=== PATIENT | male | born 1945 | race Caucasian/White ===

== ENCOUNTER 2018-08-02 01:34 | Inpatient (IN) | payer MEDICARE ==
[~2018-08-02] VITALS: Ht 172.7 cm; Wt 86.3 kg
[2018-08-02] VITALS (14 sets, daily range): BP systolic 105–145; BP diastolic 55–85
[~2018-08-02 01:34] MED LIST: ATOR20TA22 PO; CELE-1 PO; CHOL10005 PO; GAB300 PO; IBUP-136 PO; IRO150 PO; METF-450 PO; MONT10TA4 PO; NICO1PAT TD; NYST15CR37 TP; OMEP-218 PO; PER PO; RIV10 PO; SIMV-42 PO; TEST200V20 IM; VARD20TA30 PO; VARE1TAB18 PO
[2018-08-02] MEDS ORDERED: DEXAMETHASONE SOD 4 MG/ML VIAL ONE (08:08)
[2018-08-02] MEDS ORDERED: ONDANSETRON 4 MG/2 ML VIAL ONE (08:08)
[2018-08-02] MEDS ORDERED: fentaNYL CITR 250 MCG/5 ML AMP ONE (08:08)
[2018-08-02] MEDS ORDERED: LIDOCAINE MPF 1% 5 ML VIAL ONE (08:08)
[2018-08-02] MEDS ORDERED: PROPOFOL EMUL(*) 10MG/ML 20 ML 20 ML ONE ×4 (08:08→13:50)
[2018-08-02] MEDS ORDERED: SUGAMMADEX SOD 200 MG/2 ML SDV ONE (08:08)
[2018-08-02] MEDS ORDERED: KETAMINE HCL-NS 50 MG/5 ML SYR ONE (08:09)
[2018-08-02] MEDS ORDERED: HYDROmorphone HCL 2 MG/ML SDV ONE (08:09)
[2018-08-02] MEDS ORDERED: PROPOFOL EMUL(*) 10MG/ML 20 ML 60 ML ONE (09:11)
[2018-08-02] MEDS ORDERED: NORMOSOL R SOLN(*) 1000 ML BAG 1,000 ML IV PRN (10:30)
[2018-08-02] MEDS ORDERED: LIDOCAINE/SOD BICARB 8.4% SYR ID ONE (10:30)
[2018-08-02] MEDS ORDERED: PREGABALIN 75 MG CAPSULE PO ONE (10:30)
[2018-08-02] MEDS ORDERED: FAMOTIDINE 20 MG TAB PO ONE (10:30)
[2018-08-02] MEDS ORDERED: ACETAMINOPHEN 500 MG TAB PO ONE (10:30)
[2018-08-02] MEDS ORDERED: MIDAZOLAM 2 MG/2 ML VIAL IVP PRN (10:30)
[2018-08-02] MEDS ORDERED: ceFAZolin(*) 2GM/D5W 50ML 50 ML IVPB ONE (10:30)
[2018-08-02] MEDS ORDERED: THROMBIN (BOVINE) 20,000 UNIT VIAL ONE ×2 (11:08→12:54)
[2018-08-02] MEDS ORDERED: NS 0.9% IRRIGATION 1000ML PLCT IR ONE (12:06)
[2018-08-02] MEDS ORDERED: ROCURONIUM BR 10 MG/ML 5 ML SY 5 ML ONE (12:36)
[2018-08-02] MEDS ORDERED: SUGAMMADEX SOD 500 MG/5 ML SDV ONE (12:38)
[2018-08-02] MEDS ORDERED: KETAMINE HCL 200 MG/20 ML MDV ONE (12:40)
[2018-08-02] MEDS ORDERED: TRANEXAMIC AC 1000 MG/10ML SDV 1,000 MG in NS(*) 0.9% 50 ML BAG 50 ML IVPB ONE (13:00)
[2018-08-02] MEDS: BACITRACIN 50000 UNIT/VIAL 50,000 UNIT in NS 0.9% IRRIG(*) 1000ML PLCT 1,000 ML IR PRN ×2 (13:04→14:14)
[2018-08-02] MEDS ORDERED: TRANEXAMIC AC 1000 MG/10ML SDV 1,000 MG in DEXTROSE 5% 50 ML BAG 50 ML IVPB ONE (13:05)
[2018-08-02] MEDS ORDERED: BENZOCAINE/MENTHOL 1 EACH LOZG PO PRN (15:35)
[2018-08-02] MEDS ORDERED: BISACODYL 10 MG SUPP PR PRN (15:35)
[2018-08-02] MEDS ORDERED: FLUSH 10 ML SYR IVP PRN (15:35)
[2018-08-02] MEDS ORDERED: diphenhydrAMINE 25 MG CAP PO PRN (15:35)
[2018-08-02] MEDS ORDERED: LR(*) 1000 ML BAG 1,000 ML IV PRN (15:35)
[2018-08-02] MEDS ORDERED: ACETAMINOPHEN(*)1000 MG/100 ML 100 ML IVPB PRN (15:35)
[2018-08-02] MEDS ORDERED: ACETAMINOPHEN 500 MG TAB PO PRN (15:35)
[2018-08-02] MEDS ORDERED: fentaNYL CITR 100 MCG/2 ML AMP ONE (15:43)
[2018-08-02] MEDS: HYDROmorphone HCL 2 MG/ML SDV IVP PRN ×3 (16:30→22:21)
--- NOTE | 2018-08-02 17:23 | RADIOLOGY IMAGING REPORT ---
FACILITY: [facility] PATIENT NAME: Mark Lemus : 1945 MR: [id number] V: [id number] EXAM DATE: ORDERING PHYSICIAN: MALATHI FITZGERALD TECHNOLOGIST: [place] [facility] [place] Mark Lemus : 1945 Visit/Account:[id number] Date of Sevice: 08/02/2018 Exam: C-ARM FLUORO 1 HR Indication: L2-L4 DISC HERNIATION/FUSION, RAD Comparison: None available Findings: Fluoroscopy is provided for L2-L4 posterior fusion. Visualized dilatation over the spine w ith placement of pedicle screws. Fluoroscopy time 15.2 seconds DOSE: DAP was 1.0054 Gy*cm2. IMPRESSION: Procedural fluoroscopy Report Dictated By: Ap Ruiz at 08/02/2018 5:16 PM Report E-Signed By: Ap Ruiz at 08/02/2018 5:17 PM WSN:[email or web address]
--- NOTE | 2018-08-02 17:24 | RADIOLOGY IMAGING REPORT ---
FACILITY: [facility] PATIENT NAME: Mark Lemus : 1945 MR: [id number] V: [id number] EXAM DATE: ORDERING PHYSICIAN: MALATHI FITZGERALD TECHNOLOGIST: Location: [facility] [place] Patient: Mark Lemus : 1945 Visit/Account:[id number] Date of Sevice: 08/02/2018 Exam: One view, lumbar spine Indication: LUMBAR SPINE FUSION L2-L4, RAD Comparison: None available Findings: Postoperative images after placement L2-L4 fusion and shows good alignment of the pedicle s crews and intact posterior rods. Grade 1 spondylolisthesis are noted at L1-2 and L2-3. IMPRESSION: 1. Normal postoperative appearance after L2-L4 fusion Report Dictated By: Ap Ruiz at 08/02/2018 5:17 PM Report E-Signed By: Ap Ruiz at 08/02/2018 5:18 PM WSN:[email or web address]
[2018-08-02] MEDS: APAP/HYDROCODONE 325/5 TAB PO PRN (17:28)
[2018-08-02] MEDS: ONDANSETRON 4 MG/2 ML VIAL IVP PRN ×2 (17:31→21:19)
[2018-08-02] MEDS: NS(*) 0.9% 250 ML BAG 250 ML IV SCH (18:05)
--- NOTE | 2018-08-02 18:05 | Hospitalist Consultation ---
History of Present Illness Requesting Physician Dr. Anna Reason for Consult Diabetes History of Present Illness This patient was admitted for laminectomy. He has no specific complaints. History Problems: (1) DMII (diabetes mellitus, type 2) Home Meds Reported Medications Ibuprofen (IBUPROFEN) 200 Mg Capsule, 1 CAP PO Q6H PRN for PAIN, CAPSULE 07/26/18 Atorvastatin Calcium (LIPITOR) 20 Mg Tablet, 1 TAB PO QDAY, TAB 07/26/18 Metformin Hcl (METFORMIN HCL) 500 Mg Tablet, 1 TAB PO BID, TAB 07/26/18 Montelukast Sodium (MONTELUKAST SODIUM) 10 Mg Tablet, 1 TAB PO QDAY, TAB 07/26/18 Cholecalciferol (Vitamin D3) (VITAMIN D3) 1,000 Unit Tablet, 1000 UNIT PO QDAY, TAB 07/26/18 Celecoxib (Celebrex) 200 Mg Capsule, 200 MG PO BID 06/21/11 Discontinued Reported Medications Oxycodone/Acetaminophen (OXYCODONE/ACETAMINOPHEN 5MG/325 MG) 5 Mg/325 Mg Tab, 1 TAB PO Q4-6H PRN 06/21/11 Nicotine (NICODERM CQ 14 MG/24 HR (OR EQUIV)) 14 Mg Patch, 14 MG TD DAILY PRN 06/21/11 Rivaroxaban (XARELTO) 10 Mg Tablet, 10 MG PO QHS for 12 Days 06/21/11 Polysaccharide Iron Complex (Niferex) 150 Mg Cap, 150 MG PO BIDBS 06/21/11 Testosterone Cypionate (Depo-Testosterone) 200 Mg/Ml Vial, 200 MG IM [id number] 06/17/11 Vardenafil Hcl (Levitra) 20 Mg Tablet, 20 MG PO DAILY PRN 06/17/11 Varenicline Tartrate (Chantix) 1 Dose-Pack Tab.ds.pk, 1 DOSE PO 06/17/11 Simvastatin (Zocor) 20 Mg Tablet, 20 MG PO QHS 06/17/11 Omeprazole Magnesium (Prilosec Otc) 20 Mg Tablet.dr, 20 MG PO QDAY 06/17/11 Nystatin/Triamcin (Nystatin-Triamcinolone Cream) 15 Gm Cream.gm., 15 GM TP DAILY PRN 06/17/11 Gabapentin (Neurontin) 300 Mg Cap, 300 MG PO HS 06/17/11 Allergies: Coded Allergies: No Known Drug Allergies (Unverified , 06/17/11) Hx Smoking: Yes (1/2 PPD X 15 YEARS ) Smoking Status: Current: Every Day Smoker Caffeine Intake: Coffee, Tea Caffeine/Cups Per Day: 3-4/DAY, 1 TEA IN AFTERNOON Hx Alcohol Use: No Hx Substance Use Disorder: No Review of Systems All Systems Reviewed/Normal: Yes Exam Vital Signs Vital Signs Date Time Temp Pulse Resp B/P (MAP) Pulse Ox O2 Delivery O2 Flow Rate FiO2 08/02/18 17:14 97.6 62 14 123/82 (96) 93 Nasal Cannula 4.0 Neuro: No Gross deficits Eyes: PERRLA Cardiovascular: Regular Rate and Rhythm Respiratory: Clear to Auscultation Extremities: No Edema Assessment and Plan Problems: (1) DMII (diabetes mellitus, type 2) Assessment & Plan: He is on chronic treatment with metformin, which is currently on hold. He has been placed on sliding scale level #2. Venous Thromboembolism Antithrombotics Is Pt On Any Antithrombotics?: No OLIVIA CHOWDHURY DO Aug 02, 2018 18:05
[2018-08-02] MEDS: ceFAZolin(*) 2GM/D5W 50ML 50 ML IVPB SCH (18:32)
[2018-08-02] MEDS: DOCUSATE SODIUM 100 MG CAP PO SCH (20:39)
[2018-08-02] MEDS: INSULIN HUM LISPRO 100 UN/ML 3 ML VIAL SUBQ PRN (22:23)
[2018-08-02] MEDS ORDERED: PROMETHAZINE 25 MG/ML 1 ML AMP IVP PRN (23:20)
[2018-08-03] VITALS (7 sets, daily range): BP systolic 92–159; BP diastolic 46–94; Ht 172.7 cm; Wt 86.3 kg
--- NOTE | 2018-08-03 00:33 | OPERATIVE REPORT 1 ---
EVENT DATE: August 02, 2018 SURGEON: Khanh Anna MD ANESTHESIOLOGIST: Rei Chapman MD ANESTHESIA: General endotracheal anesthesia. 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 POSTOPERATIVE DIAGNOSIS L2-L3 and L3-L4 spinal stenosis with neurogenic claudication and radiculopathy. PROCEDURE PERFORMED 1. L2-L3 and L3-L4 laminectomy. 2. Exploration of fusion mass at L4-L5. 3. Placement of pedicle screws bilaterally at L2, L3 ,and L4, with posterolateral instrumented fusion, L2 to L4. 4. Repair of incidental durotomy with a bovine collagen patch and DuraSeal. INTRAVENOUS FLUIDS 2800 mL. ESTIMATED BLOOD LOSS 500 mL. IMPLANTS 6.5 mm x 45 mm screws from TruSpine x6, 65 mm connecting rods from TruSpine x2, locking caps from TruSpine x6, and finally Osteocel bone graft substitute from [employer] x2. SPECIMENS None. DRAINS None. COMPLICATIONS There was an incidental durotomy at the site of the old laminectomy secondary to significant scarring at that level. DISPOSITION Postanesthesia care unit. INDICATIONS FOR SURGERY Mr. Lemus is a 72-year-old gentleman who presented with bilateral radiating leg pain, numbness and tingling. RFAs in the past have been somewhat helpful, but epidural steroids only gave him mild temporary relief. It is notable that Mr. Lemus underwent a noninstrumented fusion procedure back in 1976, doing well after that. Most recently, he has had a significant decrease in walking tolerance secondary to heaviness and tiredness of his legs, and notes that pushing a shopping cart or being able to lean forward on an object is helpful. Physical examination revealed a decrease in range of motion with negative straight leg raising tests bilaterally. Muscle strength was 5/5 throughout, while light touch sensation was subjectively diminished in the sural distribution on the right and the saphenous distribution on the left. There was symmetrical diminishment of sensation in the tibial nerve distribution bilaterally, with intact peroneal nerve function. Diagnostic studies show a robust fusion mass spanning from L2 down to S1 in the posterolateral gutters. There was severe disc height loss at L1-L2 and L2-L3, and an anterolisthesis at L3-L4. The MRI showed severe left and moderate right lateral recess and foraminal narrowing at L2-L3 and severe central and lateral recess stenosis and severe bilateral foraminal stenosis at L3-L4. Secondary to ongoing symptoms of failure of nonsurgical care, Mr. Lemus was offered and elected to undergo laminectomy from L2 to L4 with posterolateral instrumented fusion at the same levels, and an exploration of the fusion at L4-L5 to ensure that we did not need to extend the fusion construct further caudad. Prior to surgery, I explained in detail to the patient the possible risks of surgery. These risks include bleeding, infection, damage to surrounding structures, nerve root injury, spinal fluid leak, meningitis, persistent and/or worsening pain, need for further surgery, , blindness, sexual dysfunction, autonomic nervous system dysfunction, and other unforeseen medical and surgical complications. An understanding that in general, spinal surgery is more predictive at improving extremity discomfort than axial spine pain was stressed. Further understanding regarding the revision nature of the procedure and a significant increase of risks of things like infection, spinal fluid leak, et cetera, was discussed. DESCRIPTION OF PROCEDURE On the day of surgery, the patient was met in the preoperative hold area and all questions were answered. The operative site was identified and marked by myself. Patient was brought in good condition to the operating room, and after succumbing to anesthesia was positioned in the prone position on a Oscar table. All bony protuberances and soft tissues were well padded in the standard fashion. Care was taken to maintain appropriate perfusion pressures during anesthesia. Preoperative antibiotics were administered according to the appropriate timing schedule. At the conclusion of the procedure, sponge and needle counts were correct x2. A final time-out was undertaken by members of the operating team to correct patient, correct levels, and correct surgery. Patient was then prepped and draped in the standard sterile orthopedic fashion, and a vertical incision was made overlying the intended surgical levels. Sharp dissection was carried out down to the posterior elements, and the soft tissues were elevated off the posterior elements in a subperiosteal manner. A lateral radiograph was obtained to confirm appropriate spinal levels. Starting points for pedicle screws were cleared of soft tissues bilaterally at L2, L3, and L4. At the L4 level, this was more difficult because there was significant change in the anatomic landmarks secondary to the fusion mass that extended to that level. Once we uncovered a portion of that fusion mass, we were able to probe it and explore it with a combination of curettes, Ochoa elevators, et cetera, and ensure that the fusion at L4-L5 was solid. There was, however, no solid mass between L3 and L4, and so we did elect to go ahead with fusion from L2 to L4. Initially, we had discussed doing interbody devices at the L2-L3 and L3-L4 levels; however, given the significant strength of his bone, which was actually so hard that I had to use [id number] taps for placement of pedicle screws, we elected to just perform a posterolateral fusion. At this point, we turned our attention to performing a laminectomy. The spinous processes of L2 and L3 were removed with a Leksell rongeur. The lamina was thinned down the midline with a combination of a Leksell rongeur and a high- speed bur. The spinal canal was entered by undermining the superior insertion of the ligamentum flavum from the inferior aspect of the L2 lamina. A [place] elevator was used to separate dural adhesions from surrounding bone and soft tissue prior to use of Kerrison punch while performing this midline decompression. This was performed first superiorly, going through the superior aspect of the L2 lamina, and then down inferiorly, going down to the level of the previously performed fusion. As we got towards the bottom, there were significant adhesions of dura to surrounding bone, and as we were trying to tease the dura away from the surrounding bone down inferiorly, there was a spinal fluid leak encountered. This was packed off and addressed at a later time. We did continue our decompression, performing bilateral lateral recess decompressions with a combination of #3 and #4 Kerrison punches. Once we had fully decompressed the lateral recesses, we controlled any bleeding with FloSeal and surgical patties. We then turned our attention to placement of pedicle screws. Appropriate starting points for pedicle screws were identified anatomically at the insertion of the pars interarticularis, the midpoint of the transverse process, and the lateral aspect of the facet joints at L2 and L3. At L4, because of the fusion mass, we approximated those landmarks and then utilized fluoroscopy, which we also used at other levels to identify appropriate starting points. Once those starting points were identified, the high-speed bur was used to decorticate the overlying bone, and then a Lenke-style probe was advanced against resistance through the pedicle and into the vertebral bodies. As we were doing this, we noted the bone again to be incredibly hard, and this required us to actually mallet the Lenke probe through the pedicle isthmus and into the vertebral body, and then we had to use a [id number] 6.5 mm tap in all six holes in order to place our pedicle screws. Again, 6.5 mm x 45 mm pedicle screws were placed bilaterally at L2, L3, and L4, and once this was accomplished, we measured for appropriate-length connecting rods. Connecting rods of 65 mm were selected, placed in the tulips, and then locking caps were placed, tightened, and then finally tightened with the breakoff mechanism. The extended tabs were removed from the screws, and we then turned our attention to repair of the spinal fluid leak. Several pieces of DuraGen were placed over the spinal fluid leak, controlling the flow of CSF. Once we had accomplished this, we were able to fill the entire laminectomy defect with DuraSeal, completely stopping the flow of any spinal fluid. Several Valsalva maneuvers were performed, confirming this. We then again exposed the transverse processes as well as the superior aspect of the old fusion mass, and we burred these down with a high-speed bur. A combination of local bone and Osteocel was then packed in the lateral gutters bilaterally overlying the transverse processes of L2 and L3 and extending down to the decorticated superior aspect of the previously performed fusion. The wound was irrigated with copious sterile saline solution prior to the performance of the fusion portion of the procedure, and after placement of the bone graft, we got final x-rays, which showed good positioning of the orthopedic implants. The wound was then closed in layers using a running Stratafix suture for the deep fascia, inverted interrupted sutures for the subcutaneous tissue, and then a running subcuticular skin stitch. Sponge and needle counts were correct x2. POSTOPERATIVE CARE PLAN The patient will remain in the hospital flat on his back for the next 24 hours. Starting tomorrow at about 2 p.m., he will be gradually elevated in terms of the head of his bed, and once he is sitting upright, then we will mobilize him with physical therapy. He will be discharged once he meets criteria, and will follow up with me in two weeks' time for wound check and examination. CAITLIN
[2018-08-03] MEDS: NS(*) 0.9% 250 ML BAG 250 ML IV SCH (02:25)
[2018-08-03] MEDS: ceFAZolin(*) 2GM/D5W 50ML 50 ML IVPB SCH ×2 (02:25→11:46)
[2018-08-03 05:35] LABS: PLATELET COUNT, AUTOMATED 198 K/uL (150-450)
[2018-08-03] MEDS: APAP/HYDROCODONE 325/5 TAB PO PRN ×4 (05:46→19:56)
[2018-08-03] MEDS: ATOMOXETINE HCL 10 MG CAP PO SCH (09:32)
[2018-08-03] MEDS: DOCUSATE SODIUM 100 MG CAP PO SCH ×2 (09:33→21:05)
[2018-08-03] MEDS: MONTELUKAST SODIUM 10 MG TAB PO SCH (09:33)
--- NOTE | 2018-08-03 09:40 | Hospitalist Progress Note ---
Subjective Progress Notes Subjective He was admitted s/p lumbar surgery. He is laying flat per Dr. Anna' order. He had no acute events overnight. Patient Complains of: Cardiovascular: No: Chest Pain Respiratory: No: Shortness of Breath Physical Exam Vital Signs Date Time Temp Pulse Resp B/P (MAP) Pulse Ox O2 Delivery O2 Flow Rate FiO2 08/03/18 08:19 92 Nasal Cannula 2.0 08/03/18 06:58 98.8 75 100/46 (64) 08/03/18 03:54 16 Intake and Output 08/03/18 07:01 Intake Total 2970 ml Output Total 1775 ml Balance 1195 ml Intake Oral 120 ml IV Total 2850 ml Output Urine Total 1675 ml Emesis 100 ml # Emeses 1 General Appearance: Alert, Awake, No Acute Distress, Afebrile Neuro: No Gross deficits Cardiovascular: Regular Rate and Rhythm Respiratory: No Respiratory Distress, Clear to Auscultation Psych: Alert & Oriented X3, Appropriate Mood & Affect Result Diagram: 08/03/18 0514 Assessment and Plan Problems: (1) DMII (diabetes mellitus, type 2) Assessment & Plan: He is on chronic treatment with metformin, which is currently on hold. He has been placed on sliding scale level #2. Exam Sepsis Risk: No Definite Risk MACK NICHOLS ENVIRONMENTAL SERVICES SPECIALIST Aug 03, 2018 09:40
[2018-08-03] MEDS: DIAZEPAM 5 MG TAB PO PRN ×3 (10:34→23:36)
[2018-08-03] MEDS: ONDANSETRON 4 MG/2 ML VIAL IVP PRN (10:55)
[2018-08-03] MEDS: oxyCODONE HCL 5 MG CAP PO PRN (13:13)
--- NOTE | 2018-08-03 15:14 | NUR ---
Physical Therapy Impression PT eval complete. Nursing reports patient is cleared to mobilize with PT with no complaints of postural GILMORE. Pt reporting cramping down L LE, but still able to ambulate with only CGA.Pt denies any numbness, tingling, or headaches. Pt performed supine to sit transfer, with SBA and verbal cues for log roll technique. Pt fit in [place] brace sitting EOB. Pt performed sit<>stand xfer with CGA and use of RW. Pt ambulated 80 ft with CGAx1 and use of RW.Pt ambulated with 1L of O2 since 86% on room air. Pt still reported cramping in L LE, but it did not appear to limit ambulation. Pt left sitting in reclining chair with brace still on and family in room. Pt would benefit from further skilled PT care to ensure safe ambulation and educate on safe stair negotiation. Rec Pending progress. Physical Therapy Goals 1. Jayesh bed mobility, with correct log roll technique 2. Jayesh transfers 3. Jayesh ambulation of 150 ft, with RW 4. Jayesh ability to ascend/descend 2x4 stairs 5. Independent adherence to all lumbar precautions. Patient's Goals
--- NOTE | 2018-08-03 16:13 | NUR ---
This Physical Therapist or Toe Former was present for the entire physical therapy session directing the services, making the skilled judgement, and was not engaged in treating another patient or doing another task at the same time as the treatment session. Addendum: 08/03/18 at 1614 by BOBBY GREEN PT Amended: Links added.
[2018-08-03] MEDS: INSULIN HUM LISPRO 100 UN/ML 3 ML VIAL SUBQ PRN (17:13)
--- NOTE | 2018-08-03 18:00 | EKG ---
[place] [facility] [place] RADHA WATSON : [id number] MR: [id number] V: [id number] EXAM DATE: ORDERING PHYSICIAN: TEDDY NAVARRETE TECHNOLOGIST: Test Reason : tachycardia Blood Pressure : / mmHG Vent. Rate : 114 BPM Atrial Rate : 114 BPM P-R Int : 142 ms QRS Dur : 080 ms QT Int : 316 ms P-R-T Axes : 026 091 033 degrees QTc Int : 435 ms Sinus tachycardia Rightward axis T flattening consistent with inferior ischemia vs normal variant No previous ECGs available Confirmed by TEDDY NAVARRETE ([id number]) on 08/03/2018 6:13:21 PM Referred By: Confirmed By:TEDDY NAVARRETE
--- NOTE | 2018-08-03 22:05 | Miscellaneous Provider Note ---
Miscellaneous Provider Note Note Patient's heart rate increased to the 120's. Afebrile. BP relatively unchanged. O2 requirement unchanged. He was asymptomatic. He denied cp/sob. He reported that he was drinking well. ECG showed a sinus tachycardia. His heart rate has since come down to the 90's. He thinks it could be related to pain. He was having a lot of back pain related to being in bed. TEDDY NAVARRETE MD Aug 03, 2018 22:05
[2018-08-04] MEDS: APAP/HYDROCODONE 325/5 TAB PO PRN ×5 (01:10→21:36)
[2018-08-04 03:30] VITALS: BP 107/62
[2018-08-04 07:48] VITALS: BP 125/78
[2018-08-04] MEDS: MONTELUKAST SODIUM 10 MG TAB PO SCH (08:27)
[2018-08-04] MEDS: DIAZEPAM 5 MG TAB PO PRN ×3 (08:27→21:36)
[2018-08-04] MEDS: DOCUSATE SODIUM 100 MG CAP PO SCH ×2 (08:27→21:35)
[2018-08-04] MEDS: ATOMOXETINE HCL 10 MG CAP PO SCH (08:28)
--- NOTE | 2018-08-04 09:20 | NUR ---
This Physical Therapist or Alteration Tailor was present for the entire physical therapy session directing the services, making the skilled judgement, and was not engaged in treating another patient or doing another task at the same time as the treatment session. Addendum: 08/05/18 at 0920 by HEMALATHA HANNAH PT Amended: Links added.
[2018-08-04] MEDS: oxyCODONE HCL 5 MG CAP PO PRN ×3 (09:42→14:10)
--- NOTE | 2018-08-04 10:14 | Hospitalist Progress Note ---
Subjective Progress Notes Subjective He was admitted s/p lumbar surgery. He has complaints of pain to the surgical site. Patient Complains of: Cardiovascular: No: Chest Pain Respiratory: No: Shortness of Breath Physical Exam Vital Signs Date Time Temp Pulse Resp B/P (MAP) Pulse Ox O2 Delivery O2 Flow Rate FiO2 08/04/18 08:48 85 08/04/18 08:35 Nasal Cannula 1.0 08/04/18 07:48 98.7 116 16 125/78 (94) Intake and Output 08/04/18 01:01 Intake Total 1780 ml Output Total 2250 ml Balance -470 ml Intake Oral 1680 ml IV Total 100 ml Output Urine Total 2150 ml Urine/Stool Mix 100 ml General Appearance: Alert, Awake, No Acute Distress, Afebrile Cardiovascular: Other (tachycardia noted) Respiratory: No Respiratory Distress, Clear to Auscultation GI: Soft and Non-Tender Extremities: Warm, Perfused; No Edema Psych: Alert & Oriented X3, Appropriate Mood & Affect Result Diagram: 08/03/18 0514 Assessment and Plan Problems: (1) Lumbar stenosis Status: Acute Assessment & Plan: s/p lumbar surgery. Followed by Dr. Anna. (2) Tachycardia Status: Acute Assessment & Plan: Likely related to pain, on telemetry. Denies CP/SOB. Will continue to monitor. (3) DMII (diabetes mellitus, type 2) Assessment & Plan: He is on chronic treatment with metformin, which is currently on hold. Will resume when eating better. He has been placed on sliding scale level #2. Exam Sepsis Risk: No Definite Risk MACK NICHOLSP Aug 04, 2018 10:14
[2018-08-04 12:42] VITALS: BP 136/82
[2018-08-04] MEDS: CALCIUM CARBONATE 500 MG CHEW PO PRN (13:16)
[2018-08-04] MEDS: MAGNESIUM HYDROXIDE* 30ML UDCP PO PRN (13:16)
--- NOTE | 2018-08-04 14:04 | NUR ---
Physical Therapy Impression Pt still unable to transfer to standing on own, reporting weakness/pain in L leg. ModAx2 required to perform sit<>stand transfers. Pt ambulated 125 ft with RW, 1L of O2, and CGA. Pt L leg still appearing to go out. Pt reports feeling slightly better with ambulation. HR matt to >135 during ambulation, Pt asymptomatic. Concepcion provided for sit to supine transfer and for positioning in bed. Pt left in bed with O2 on, call light in reach, and grandson present in room. Pt would benefit from further skilled PT care to improve strength/mobility to gain independence with transfer and ambulaiton. Rec short term subacute rehab. Physical Therapy Goals 1. Jayesh bed mobility, with correct log roll technique 2. Jayesh transfers 3. Jayesh ambulation of 150 ft, with RW 4. Jayesh ability to ascend/descend 2x4 stairs 5. Independent adherence to all lumbar precautions. Patient's Goals
[2018-08-04 16:06] VITALS: BP 121/73
[2018-08-04 19:04] VITALS: BP 109/67
[2018-08-04] MEDS: INSULIN HUM LISPRO 100 UN/ML 3 ML VIAL SUBQ PRN (21:44)
[2018-08-04 23:56] VITALS: BP 103/63
[2018-08-05] MEDS: CALCIUM CARBONATE 500 MG CHEW PO PRN ×3 (01:13→20:27)
[2018-08-05] MEDS ORDERED: FUROSEMIDE 20 MG/2 ML VIAL IVP ONE (02:45)
[2018-08-05 02:58] VITALS: BP 125/73
[2018-08-05] MEDS: ALBUTEROL 2.5 MG/3 ML NEB NEB PRN ×2 (03:08→05:17)
--- NOTE | 2018-08-05 04:23 | RADIOLOGY IMAGING REPORT ---
[place] [facility] [place] NAME: Mark Lemus : 1945 MR: [id number] V: [id number] EXAM DATE: ORDERING PHYSICIAN: OLIVIA CHOWDHURY TECHNOLOGIST: Location: [facility] [place] Patient: Mark Lemus : 1945 Visit/Account:[id number] Date of Sevice: 08/05/2018 AP CHEST 08/05/2018 3:54 AM. INDICATION: increased O2 requirements COMPARISON: None. FINDINGS: Lungs are well-expanded. There is patchy opacification in the left mid and lower lung. No pleural eff usion or pneumothorax. Heart size is normal. IMPRESSION: Suspicious for pneumonia in the left mid and lower lung. Aspiration and atelectasis are also considerations. Report Dictated By: Alan Valenzuela MD at 08/05/2018 4:16 AM Report E-Signed By: Alan Valenzuela MD at 08/05/2018 4:18 AM WSN:[id number]
[2018-08-05] MEDS: AMPICILLIN/SULBACT (*) 3 GM VL 3 GM in NS(*) 0.9% 100 ML MINI-BAG 100 ML IVPB SCH ×3 (06:05→17:27)
[2018-08-05 07:24] VITALS: BP 135/75
[2018-08-05 08:07] LABS: PLATELET COUNT, AUTOMATED 199 K/uL (150-450)
[2018-08-05] MEDS: METOPROLOL TART 5 MG/5 ML VIAL IVP SCH ×2 (08:09→17:26)
--- NOTE | 2018-08-05 08:24 | NUR ---
random blood sugar with morning labs at 0755 of 193-- no coverage as pt made NPO Addendum: 08/05/18 at 0825 by SHAWN MAYFIELD RN Amended: Links added.
[2018-08-05] MEDS ORDERED: metFORMIN HCL 500 MG TAB PO SCH (09:00)
--- NOTE | 2018-08-05 09:22 | NUR ---
This Physical Therapist or Coach Builder was present for the entire physical therapy session directing the services, making the skilled judgement, and was not engaged in treating another patient or doing another task at the same time as the treatment session. Addendum: 08/05/18 at 0922 by HEMALATHA HANNAH PT Amended: Links added.
[2018-08-05] MEDS ORDERED: NS(*) 0.9% 1000 ML BAG 1,000 ML IV PRN (10:10)
--- NOTE | 2018-08-05 10:19 | NUR ---
ST Impression Bedside swallow complete. Rec cont NPO with completion of MBSS to objectively analyze anatomy/physiology of deglutition. Scheduled for today (08/05) at 1030am. OK to receive crushed medications, immersed in puree pending further recommendations after MBSS completion.
--- NOTE | 2018-08-05 10:21 | Hospitalist Progress Note ---
Subjective Progress Notes Subjective He had an episode of increased oxygen use. It appears he aspirated ice cream last night. He is requiring Vapotherm at 30L of oxygen this morning. He is coughing up brown secretions, likely food from last night. He reports he doesn't feel good this morning. He also has a fever this morning. Patient Complains of: Cardiovascular: No: Chest Pain Respiratory: Cough, Shortness of Breath Physical Exam Vital Signs Date Time Temp Pulse Resp B/P (MAP) Pulse Ox O2 Delivery O2 Flow Rate FiO2 08/05/18 09:17 104 94 Vapotherm 28.0 90.0 08/05/18 08:16 101.7 08/05/18 07:24 24 135/75 (95) Intake and Output 08/05/18 07:01 Intake Total 0 ml Output Total 350 ml Balance -350 ml Intake Oral 0 ml Output Urine Total 300 ml Emesis 50 ml # Voids 8 # Emeses 1 General Appearance: Alert, Awake Cardiovascular: Other (tachycardia noted) Respiratory: Other (rhonchi heard throughout bilateral upper and lower oma hobbs) GI: Other (abdomen firm to palpation, active bowel sounds) Extremities: Warm, Perfused; No Edema Psych: Appropriate Mood & Affect Result Diagram: 08/05/18 0755 08/05/18 0755 Assessment and Plan Problems: (1) Aspiration pneumonia Status: Acute Assessment & Plan: He had an episode 08/04 of aspiration of ice cream. He is now requiring Vapotherm. He has fevers this morning. He was placed on treatment with Unacyn. Speech evaluation pending. Per patient, he always has difficult time swallowing food prior to surgery. He will be made NPO until swallow evaluation completed. He will be started on IV fluids while NPO. He will be placed on scheduled nebulizers also. (2) Lumbar stenosis Status: Acute Assessment & Plan: s/p lumbar surgery. Followed by Dr. Anna. (3) Tachycardia Status: Acute Assessment & Plan: Likely related to pain, on telemetry. Denies CP/SOB. Will continue to monitor. Will add Metoprolol IV push this morning. (4) DMII (diabetes mellitus, type 2) Assessment & Plan: He is on chronic treatment with metformin, which is currently on hold. Will resume when eating better. He has been placed on sliding scale level #2. Exam Sepsis Risk: Sepsis Risk Problem Qualifiers (1) Aspiration pneumonia: Aspiration pneumonia type: due to regurgitated food Laterality: left Lung location: upper lobe of lung Qualified Codes: J69.0 - Pneumonitis due to inhalation of food and vomit MACK NICHOLS WINE MAKER Aug 05, 2018 10:21
[2018-08-05] MEDS ORDERED: BARIUM SULFATE 148 GM POWDER ONE (10:36)
[2018-08-05] MEDS ORDERED: BARIUM SULFATE 240 ML ORAL SUS (NECTAR) ONE (10:36)
[2018-08-05] MEDS: LEVALBUTEROL 0.63 MG/3 ML NEB NEB SCH ×4 (10:40→22:28)
[2018-08-05 11:14] VITALS: BP 118/72
[2018-08-05] MEDS: DOCUSATE SODIUM 100 MG CAP PO SCH ×2 (11:19→20:27)
[2018-08-05] MEDS: ATOMOXETINE HCL 10 MG CAP PO SCH (11:20)
[2018-08-05] MEDS: MONTELUKAST SODIUM 10 MG TAB PO SCH (11:21)
[2018-08-05] MEDS: oxyCODONE HCL 5 MG CAP PO PRN ×5 (11:21→20:27)
[2018-08-05] MEDS: INSULIN HUM LISPRO 100 UN/ML 3 ML VIAL SUBQ PRN ×3 (11:35→21:42)
--- NOTE | 2018-08-05 11:47 | RADIOLOGY IMAGING REPORT ---
FACILITY: [facility] [place] PATIENT NAME: Mark Lemus : 1945 MR: [id number] V: [id number] EXAM DATE: ORDERING PHYSICIAN: MACK NICHOLS TECHNOLOGIST: Location: [facility] [place] Patient: Mark Lemus : 1945 Visit/Account:[id number] Date of Sevice: 08/05/2018 Exam type: ESOPH VIDEO SWALLOWING History: Dysphagia Comparison: None. Findings: The modified barium swallow was performed by the speech pathologist. Fluoroscopic assistance was pro vided. Patient received thin barium and various food substances and a barium tablet. There was mild oral pharyngeal dysphasia and trace pharyngeal penetration with thin liquids. Mild possible esophag eal dysphasia also noted. Please see the speech pathologist report for complete details. The dose a la nena product was 899.42 micro-Alberts per meter squared. IMPRESSION: 1. As above Report Dictated By: Tasha Perez MD at 08/05/2018 11:39 AM Report E-Signed By: Tasha Perez MD at 08/05/2018 11:40 AM WSN:[id number]
[2018-08-05] MEDS: NICOTINE 21 MG/24 HR PATCH TD SCH (12:20)
--- NOTE | 2018-08-05 13:28 | NUR ---
ST Impression MBSS complete. Pt presents with mild oropharyngeal dysphagia, consistent with generalized body weakness and suspected deconditioning of swallow musculature. Flash, trace penetration was noted with thin liquids. Material was quickly and completely ejected from the airway with laryngeal vestibule closure. All other trials were consumed without aspiration or penetration of material. 1cm barium pill became lodged in the pt's valleculae when paired with thin liquids. Easily cleared pharynx with provision of pureed solid. Anticipate full return to baseline swallow status with constitutional improvement and increased time s/p surgical sedation. Detailed report to follow. Recommend the followin. Diet: as tolerated. Small bites. Softer solids may promote efficiency of oral phase and compensate for shortness of breath during mastication. 2. Liquids: thin liquids. Small sips (cup or straw OK). 3. Medications: immersed in a pureed solid, one at a time. 4. Compensatory Techniques: upright (near 90 deg) with PO intake, remain upright at least 45 min after PO, consume small bites/sips, one bite/sip at a time, take rest breaks for respiration 5. Referrals: f/u with PCP and GI as outpatient re: chronic acid reflux, possible esophageal dysphagia observed on MBSS.
--- NOTE | 2018-08-05 13:33 | SLP BEDSIDE SWALLOW EVALUATION ---
SPEECH THERAPY ASSESSMENT Bedside dysphagia evaluation Physician: SCOTT Holland Clinician: Mindy Phillip MS, CCC-ADULT SERVICES LIBRARIAN Type of Assessment: Bedside Dysphagia Evaluation Patient: Mark Lemus : [birth year] Evaluation Date: 08/05/2018 BACKGROUND The patient is a 72-year-old male admitted to [facility] s/p lumbar surgery on 08/04/18. An ST consult was requested for completion of a bedside swallow evaluation due to concern for aspiration of ice cream with elevated O2 needs and development of fever the evening after surgery. CXR illustrated patchy opacification in the left mid and lower lung, suspicious for aspiration pneumonia. Primary Medical Diagnosis: lumbar stenosis Pmhx: tachycardia, DM2 Pain Scale (0-10): 8, back, RN informed LOC / Participation: Alert and cooperative. Follows instructions: yes, somewhat slow to respond likely r/t to severity of pain Orientation: A&O x4. Functional Communication Deficits impact swallow function/safety, or response to therapy: No DYSPHAGIA Sialorrhea: No Xerostomia: No Hygiene: WFL Supplemental Oxygen Use: Yes. 28.0 liters via Vapotherm. COPD Dx: No. Pain with Swallow: Denies. Pt seen at the bedside for clinical swallowing assessment. Litzy (Karan) present to supplement case history. Grandson reports chronic history of acid reflux (minimally 4x/wk) and frequent hacking throughout the day. Attributes this behavior to habitual smoking. Pt was alert and participatory throughout encounter despite high levels of pain and shortness of breath. Pt required frequent breaks to suction oral cavity, with productive cough generating thick and dark (rodriguez/black) secretions. Oral cavity was swabbed, cleaned, and suctioned prior to placement of dentures and prior to initiation of PO trials. Oromotor exam remarkable for edentulism and mild, generalized reduction in speed and strength of oral musculature. Administered PO trials of thin liquids via cup sip and pureed solids. Pt exhibited delayed, subtle throat clearing in response to thin liquids. Respiration also appeared increasingly audible with a wheezing quality following administration of thin liquids. With consideration of compromised respiratory status, productive coughing (dark, thick secretions), possible indicators of ongoing aspiration, and generalized body weakness, elected to cease PO trials after administration of thin liquids and pureed solids. Recommend pt remain NPO pending MBSS completion with allowance of medications crushed and immersed in puree for pain and medical management. Results and recommendations were discussed at length with the pt, litzy, CORE CARRIER, and RN. Anticipate completion of MBSS today (08/05) at 1030am. ST ASSESSMENT SUMMARY Aspiration Risk: Moderately elevated. Negative prognostic indicators include compromised respiratory status with elevated O2. High suspicion of aspiration pneumonia. RAJIV: Level 1, recommend pt remain NPO pending MBSS completion (Scheduled for 08/05 @ 1030am). Speech Therapy Need Ongoing ST is medically necessary for this patient to obtain objective, thorough assessment of deglutition to assist in developing safe recommendations for diet modifications, compensatory swallow strategies, aspiration precautions, and potential establishment of an oropharyngeal exercise regimen. RECOMMENDATIONS 1. Diet: NPO pending MBSS (apart from medications). 2. Medications: crushed, immersed in puree 3. Compensatory Techniques: continue regular oral hygiene 4. MBSS. Anticipate completion today (08/05) @ 1030am. Thank you for this referral. Mindy Phillip M.S., CCC-ADULT SERVICES LIBRARIAN Speech Therapist [*] CAITLIN
--- NOTE | 2018-08-05 14:20 | NUR ---
Physical Therapy Impression Pt with new diagnosis of aspiration pneumonia, see EMR for details. Pt on 18L O2 via vapotherm, and has been tachycardic today. RN reports that pt is appropriate for minimal PT intervention today and cleared to mobilize to chair if tolerated. Verbal cues for bed mobility and log roll technique, pt does not require physical assist to transfer supine to sitting at EOB. CGA for STS transfer with RW and stand pivot transfer from bed to chair with RW. SpO2 and pulse rate remained stable throughout session and with increase in activity. Pt left in chair with SpO2 monitor in place and all needs within reach. Continue to rec further rehab. Physical Therapy Goals 1. Jayesh bed mobility, with correct log roll technique 2. Jayesh transfers 3. Jayesh ambulation of 150 ft, with RW 4. Jayesh ability to ascend/descend 2x4 stairs 5. Independent adherence to all lumbar precautions. Patient's Goals
[2018-08-05] MEDS: ONDANSETRON 4 MG/2 ML VIAL IVP PRN (15:46)
[2018-08-05] MEDS: MAGNESIUM HYDROXIDE* 30ML UDCP PO PRN (16:16)
--- NOTE | 2018-08-05 16:21 | SLP MODIFIED BARIUM SWALLOW ---
Speech Language Pathology Modified Barium Swallow Evaluation Report Date of Evaluation: 08-05-2018 Patient Name: Mark Lemus Patient : 1945 Ordering Provider: SCOTT Navas Clinician: Mindy Phillip M.S., CCC-RESIDENTIAL DIRECTOR; Jenifer Ahumada, Slicer Machine Operator Clinician BACKGROUND The patient is a 72 yr old male. The patient was referred for an MBS to assess swallow structure and function as indicated by s/s of aspiration during completion of bedside swallow assessment. Bedside swallow assessment was initially requested due to strong suspicion of aspiration pneumonia with elevated oxygen needs and illustration of opacification on chest x-ray. Oxygen Supplementation: yes, 28.0 liters via Vapotherm Level of Consciousness: Non altered Cognitive/Linguistic: WNL Orientation: x4 Language: -expressive: nonaphasic -receptive: nonaphasic Speech: -non-apraxic -non-dysarthric Voice: reduced volume due to compromised respiratory status. Non-verbal Oral Structure and Function: full mandibular and maxillary dentures. Pain with Swallow: Denies with swallow, however, patient reported feeling constant, chronic pain in chest his grandson attributed to acid reflux. Pain did not fluctuate before, during, or after swallow. MODIFIED BARIUM SWALLOW In conjunction with radiology, patient was seated in the lateral view with trials of the following consistencies: thin barium liquid (noncarbonated), barium marked pureed, mechanical soft, regular, and mixed food consistencies, and a 1cm barium pill (whole, paired with thin liquids and chased with pureed solid). ORAL STAGE Mild deficits characterized by generalized oral weakness (labial, lingual, mandibular). This resulted in anterior spillage of thin liquids, slowed mastication of all solid consistencies, effortful A/P transit, and trace to mild post swallow oral residue. Bolus containment was otherwise good with no abnormal premature posterior loss of material. Patient was also able to adequately break down all consistencies into a cohesive bolus for safe deglutition. PHARYNGEAL STAGE Mild deficits further observed, characterized by generalized weakness with reduced BOT retraction and subsequently reduced epiglottic inversion, delayed closure of the laryngeal vestibule, and reduced posterior pharyngeal wall movement. As a result of generalized weakness, patient exhibited mild post swallow pharyngeal residue. Pt further demonstrated trace, flash penetration of thin liquid material into the laryngeal vestibule as a result of reduced epiglottic inversion and delayed LVC closure. Hyolaryngeal excursion was adequate to open PES and clear bolus into esophagus. With administration of 1 cm barium pill, material became lodged in valleculae when paired with thin liquids as a result of decreased epiglottic inversion. Pill was easily cleared with additional swallow of pureed solids. Penetration/Aspiration Scale* score of 1: Material does not enter airway for all consistencies except thin liquids which received a Penetration/Aspiration Scale* score of 2: Material enters the airway, remains above the vocal folds, and is ejected from the airway with laryngeal vestibule closure. *(Luz et al. 1996) ESOPHAGEAL STAGE Suspected mild esophageal dysphagia as evidenced by slow passage of material through cervical and thoracic esophagus. 1 cm barium pill became lodged at LES but was cleared into stomach with 1-2 bites of pureed solid. SUMMARY Aspiration Risk: Mild. Patient presents with mild oropharyngeal dysphagia, consistent with generalized body weakness and suspected deconditioning of swallow musculature. Flash, trace penetration was noted with thin liquids. Material was quickly and completely ejected from the airway with laryngeal vestibule closure. All other trials were consumed without aspiration or penetration of material. 1cm barium pill became lodged in the patients valleculae when paired with thin liquids. The patient easily cleared pharynx with provision of pureed solid. Anticipate full return to baseline swallow status with constitutional improvement and increased time s/p surgical sedation. Dysphagia Severity Rating Scale (Gramigna, 2006; Manjinder et. al., 1990): 2: Mild oropharyngeal dysphagia present, which can be managed by specific swallow suggestions. RECOMMENDATIONS 1. Diet: as tolerated. Small bites. Softer solids may promote efficiency of oral phase and compensate for shortness of breath during mastication. Liquids: thin liquids. Small sips (cup or straw OK). Medications: immersed in a pureed solid, one at a time. 2. Compensatory Techniques: upright (near 90 deg) with PO intake, remain upright at least 45 min after PO, consume small bites/sips, one bite/sip at a time, take rest breaks for respiration 3. Referrals: f/u with PCP and GI as outpatient re: chronic acid reflux, possible esophageal dysphagia observed on MBSS. 4. No ST recommended at this time. Mild oropharyngeal dysphagia anticipated to resolve with constitutional improvement. Thank you for this referral. Please call [phone] to contact the RESIDENTIAL DIRECTOR. Mindy Phillip M.S., [facility]-RESIDENTIAL DIRECTOR Jenifer Ahumada, Slicer Machine Operator Clinician [facility]
[2018-08-05] MEDS: metFORMIN HCL 500 MG TAB PO SCH (17:26)
[2018-08-05 18:53] VITALS: BP 119/66
[2018-08-05 23:51] VITALS: BP 131/78
[2018-08-06] MEDS: LEVALBUTEROL 0.63 MG/3 ML NEB NEB SCH ×2 (00:28→05:39)
[2018-08-06] MEDS: AMPICILLIN/SULBACT (*) 3 GM VL 3 GM in NS(*) 0.9% 100 ML MINI-BAG 100 ML IVPB SCH ×2 (00:31→05:29)
[2018-08-06] MEDS: METOPROLOL TART 5 MG/5 ML VIAL IVP SCH ×3 (00:31→12:29)
[2018-08-06 03:16] VITALS: BP 114/72
[2018-08-06 06:32] LABS: PLATELET COUNT, AUTOMATED 203 K/uL (150-450)
[2018-08-06] MEDS: CALCIUM CARBONATE 500 MG CHEW PO PRN (06:53)
[2018-08-06 06:57] VITALS: BP 138/80
[2018-08-06] MEDS ORDERED: GI COCKTAIL 60 ML BTL PO PRN (08:25)
[2018-08-06] MEDS: MONTELUKAST SODIUM 10 MG TAB PO SCH (08:46)
[2018-08-06] MEDS: metFORMIN HCL 500 MG TAB PO SCH (08:46)
[2018-08-06] MEDS: DOCUSATE SODIUM 100 MG CAP PO SCH (08:46)
[2018-08-06] MEDS: ATOMOXETINE HCL 10 MG CAP PO SCH (08:46)
[2018-08-06] MEDS: NICOTINE 21 MG/24 HR PATCH TD SCH (08:46)
[2018-08-06] MEDS: APAP/HYDROCODONE 325/5 TAB PO PRN (08:47)
[2018-08-06] MEDS ORDERED: RANITIDINE HCL 150 MG TAB PO SCH (09:00)
[2018-08-06] MEDS ORDERED: PATCH REMOVAL 1 EA TP SCH (09:00)
[2018-08-06] MEDS ORDERED: AMOX/CLAV 875 MG TAB PO ONE (09:00)
--- NOTE | 2018-08-06 10:35 | Antimicrobial Stewardship ---
Antimicrobial Time Out Antimicrobial Stewardship MD Service: Other (SURGERY) Indications: Other (PO STOP) Antimicrobial Used POST OP ABX - CONVERTED TO PO AUGMENTIN BEFORE DISCHARGE Start Date: Aug 05, 2018 Culture Results: No Eligible for PO Conversion Eligable for PO Conversion: Yes Reviewed with Provider Reviewed w/ Provider on Rounds: No Comments Comments POST OP FABI BARFIELD Aug 06, 2018 10:35
[2018-08-06] MEDS ORDERED: MOM PO (10:57)
[2018-08-06] MEDS ORDERED: LACT1CAP9 PO (10:57)
[2018-08-06] MEDS ORDERED: RANI-318 PO (10:57)
[2018-08-06] MEDS ORDERED: AMOX-559 PO (10:57)
[2018-08-06] MEDS ORDERED: DOCU-202 PO (10:57)
[2018-08-06] MEDS ORDERED: LEVA0.6320 NEB (10:57)
[2018-08-06] MEDS ORDERED: DIA5 PO (10:57)
[2018-08-06] MEDS ORDERED: LOR5/325 PO (10:57)
[2018-08-06] MEDS ORDERED: LEVALBUTEROL 0.63 MG/3 ML NEB NEB SCH (11:00)
--- NOTE | 2018-08-06 11:17 | Hospitalist Depart ---
Discharge Summary Reason for Hosp/Final Diag: (1) Aspiration pneumonia Status: Acute Hospital Course & Plan: He had an episode 08/04 of aspiration of ice cream. He was now requiring Vapotherm, and now is requiring 5-6L of oxygen. He no longer has fever. He was placed on treatment with Unacyn and transitioned today to Au gmentin for an additional 7 days treatment. Speech evaluation completed show no issues with swallow evaluation and barium swallow completed. Per patient, he always has had difficult time swallowing food prior to surgery. He was made NPO until swallow evaluation completed, then after evaluation has been on regular diet without difficulty swallowing. He was recommended to stay an additional night and receive antibiotics and help wean down his oxygen use, but patient adamant he would like to leave today. He reports he will use oxygen in the car on his way to rehab center in [place]. (2) Lumbar stenosis Status: Acute Hospital Course & Plan: s/p lumbar surgery. Followed by Dr. Anna. (3) Tachycardia Status: Acute Hospital Course & Plan: Likely related to medication (Strattera), he was placed on telemetry. Denies CP/SOB. He was given Metoprolol IV push to help with heart rate. Heart rate will likely resolve to normal parameters, with discontinuation of Strattera. (4) DMII (diabetes mellitus, type 2) Hospital Course & Plan: He is on chronic treatment with metformin. He has been placed on sliding scale level #2. (5) Hyperlipidemia Status: Chronic Hospital Course & Plan: Continue chronic Atorvastatin. Departure Latest Vital Signs Vital Signs 08/05/18 08/06/18 08/06/18 23:51 06:57 08:47 Temp 98.4 Pulse 98 Resp 14 B/P (MAP) 138/80 (99) Pulse Ox 90 O2 Delivery High-Flow Nasal Cannula O2 Flow Rate 6.0 FiO2 55.0 Weight (Pounds): 190 Weight (Ounces): 3.2 Result Diagram: 08/06/1855408/06/18554 Condition: Improved Discharge: [facility] PT/OT Follow Up For: PT For Surgical Rehab Discharge Instructions Home Meds Active Scripts Lactobacillus Combo No.10 (PROBIOTIC) 1 Each Capsule, 1 EACH PO DAILY, #10 CAPSULE Prov:MACK NICHOLS MARINE ENGINE MACHINIST 08/06/18 Amoxicillin/Pot Clav 875-125 Mg Tab (AUGMENTIN 875-125 TABLET) 1 Each Tablet, 1 TAB PO Q12H for 7 Days, #14 TAB Prov:MACK NICHOLS [facility] 08/06/18 Levalbuterol Hcl (XOPENEX) 0.63 Mg/3 Ml Vial.neb, 0.63 MG NEB Q4HR PRN for wheezing, #60 UNIT Prov:MACK NICHOLS [facility] 08/06/18 Diazepam (VALIUM) 5 Mg Tablet, 5-10 MG PO Q6H PRN for MUSCLE SPASMS, #10 TAB Prov:MACK NICHOLS [facility] 08/06/18 Hydrocodone Bit/Acetaminophen (HYDROCODON-ACETAMINOPHEN 5-325) 1 Each Tablet, 1- 2 EACH PO Q4H PRN for MODERATE PAIN, #30 TAB Prov:MACK NICHOLS [facility] 08/06/18 Docusate Sodium (DOCUSATE SODIUM) 100 Mg Capsule, 100 MG PO BID, #60 CAPSULE Prov:MACK NICHOLS [facility] 08/06/18 Magnesium Hydroxide (MILK OF MAGNESIA) 400 Mg/5 Ml Oral.susp, 30 ML PO PRN PRN for CONSTIPATION, #30 DOSE-PACK Prov:MACK NICHOLS [facility] 08/06/18 Ranitidine Hcl (RANITIDINE HCL) 150 Mg Tablet, 150 MG PO BID, #60 TAB Prov:MACK NICHOLS [facility] 08/06/18 Reported Medications Atorvastatin Calcium (LIPITOR) 20 Mg Tablet, 1 TAB PO QDAY, TAB 07/26/18 Metformin Hcl (METFORMIN HCL) 500 Mg Tablet, 1 TAB PO BID, TAB 07/26/18 Montelukast Sodium (MONTELUKAST SODIUM) 10 Mg Tablet, 1 TAB PO QDAY, TAB 07/26/18 Cholecalciferol (Vitamin D3) (VITAMIN D3) 1,000 Unit Tablet, 1000 UNIT PO QDAY, TAB 07/26/18 Discontinued Reported Medications Ibuprofen (IBUPROFEN) 200 Mg Capsule, 1 CAP PO Q6H PRN for PAIN, CAPSULE 07/26/18 Celecoxib (Celebrex) 200 Mg Capsule, 200 MG PO BID 06/21/11 Diet: Diabetic Activity: As Tolerated, With Walker Special Instructions: has had stool softeners, prune juices and MOM for his bowels, please followup at your facility Back brace when out of bed See ortho orders Venous Thromboembolism Antithrombotics Is Pt On Any Antithrombotics?: No Problem Qualifiers (1) Aspiration pneumonia: Aspiration pneumonia type: due to regurgitated food Laterality: left Lung location: upper lobe of lung Qualified Codes: J69.0 - Pneumonitis due to inhalation of food and vomit MACK NICHOLS MARINE ENGINE MACHINIST Aug 06, 2018 05:17
[2018-08-06] MEDS: oxyCODONE HCL 5 MG CAP PO PRN (12:03)
[2018-08-06 12:04] VITALS: BP 115/81
--- NOTE | 2018-08-06 12:42 | NUR ---
PHYSICAL THERAPY INFORMATION TRANSFER SHEET BED MOBILITY: Verbal cues TRANSFERS: CGA GAIT: 120 ' with O2 RW and CGA Weightbearing Status: STAIRS: with . EXERCISES: Verbalizes Needs: Yes Understands Directions Yes Cooperative: Yes Family Teaching: Yes Physical Therapy Comment:
[2018-08-06] MEDS: DIAZEPAM 5 MG TAB PO PRN (13:02)
== END 2018-08-06 13:15 | DRG 459 ==
LOC: OR 01:34 → MED 17:10
PROVIDERS: ADMIT Orthopaedic Surgery; ATTEND Orthopaedic Surgery
PROC: 01NB0ZZ Release Lumbar Nerve, Open Approach (ICD-10-PCS; 2018-08-02)
PROC: 00UT0KZ Supplement Spinal Meninges with Nonautologous Tissue Substitute, Open Approach (ICD-10-PCS; 2018-08-02)
PROC: 0SG1071 Fusion of 2 or more Lumbar Vertebral Joints with Autologous Tissue Substitute, Posterior Approach, Posterior Column, Open Approach (ICD-10-PCS; principal; 2018-08-02 11:11)
DX: M48.062 Spinal stenosis, lumbar region with neurogenic claudication (principal); J69.0 Pneumonitis due to inhalation of food and vomit; G97.41 Accidental puncture or laceration of dura during a procedure; T43.215A Adverse effect of selective serotonin and norepinephrine reuptake inhibitors, initial encounter; E11.9 Type 2 diabetes mellitus without complications; F17.210 Nicotine dependence, cigarettes, uncomplicated; N40.0 Benign prostatic hyperplasia without lower urinary tract symptoms; R00.0 Tachycardia, unspecified; E78.5 Hyperlipidemia, unspecified; R13.10 Dysphagia, unspecified; Z79.84 Long term (current) use of oral hypoglycemic drugs; Y83.8 Other surgical procedures as the cause of abnormal reaction of the patient, or of later complication, without mention of misadventure at the time of the procedure; Y79.3 Surgical instruments, materials and orthopedic devices (including sutures) associated with adverse incidents
CPT/HCPCS: 36415; 36416; 71045; 72020; 74230; 76000; 82040; 82247; 82310; 82374; 82435; 82565; 82947; 82948; 83605; 84075; 84132; 84155; 84295; 84450; 84460; 84520; 85025; 86850; 86900; 86901; 93005; 94640; 95940; 97161; C1713; C1763; J0295; J0690; J1100; J1170; J1940; J2001; J2405; J2550; J2704; J3010; J3490; J7030; J7050; J7060; J7613; J7614